=== PATIENT | female | born 1930 | race Caucasian/White ===

== ENCOUNTER 2016-12-19 14:42 | Inpatient (IN) | payer MEDICARE ==
[2016-12-19] VITALS (14 sets, daily range): BP systolic 141–179; BP diastolic 61–88
[~2016-12-19] VITALS: Ht 165.1 cm; Wt 63.5 kg
[~2016-12-19 14:42] MED LIST: ASPIRIN81 M1 PO; ATIVAN0.5 MG PO; CALCIUM 600 + V1 TAB PO; CLARITIN10 MG PO; COZAAR50 M1 PO; FOSAMAX70 M1 PO; GLIPIZIDE2.5 MG PO; HUMALOG100 U/ML SC; KEPPRA500 MG PO; LANTUS100 U/ML SC; LASIX20 MG PO; MAXIPIME2 GM IV; METFORMIN500 MG PO; METOPROLOL TART75 MG PO; METOPROLOL25 MG PO; MIRALAX POWDER17 GM PO; MULTIVITAMINS1 EAC5 PO; Micro K10 MEQ PO; NEURONTIN300 MG PO; NITRO-DUR0.4 MG/HR TD; NOVOLOG FLEX100 U/ML SC; PLAVIX75 MG PO; Synthroid,Levo50 MCG PO; VANCOCIN1000 MG/25 IV; ZOCOR40 MG PO
[2016-12-19 15:55] LABS: CKMB 4.7 ng/ml (0.5-3.6)
--- NOTE | 2016-12-19 17:55 | NUR ---
INFORMED DR CARTER THAT PTS TROPONIN WAS ELEVATED AT 0.316. NO NEW ORDERS
--- NOTE | 2016-12-19 18:05 | NUR ---
A 86, admitted to , under the services of RODOLFO Darby DO with a diagnosis of ANEMIA. Chief complaint is SHORTNESS OF BREATH. Patient arrived via bed from ER. Monitor applied. Initial assessment completed. Vital signs taken and recorded. RODOLFO DARBY DO notified of admission to the unit. Orders received. See assessment for past medical history, medications and allergies. Patient and/or family oriented to unit. [facility] visitation policy reviewed. Clothing/patient valuable form completed. ASSESSMENT COMPLETE. SKIN TEAR RIGHT ENNIS. PHOTO AND MEASUREMENTS TAKEN. WILL VERIFY HOME MEDIACTIONS. MICHELLE LYNNE
[2016-12-19] MEDS ORDERED: DONEPEZIL HCL10 MG PO (18:06)
[2016-12-19] MEDS ORDERED: DUONEB 3 MG/3 ML3 M1 INH (18:07)
[2016-12-19] MEDS ORDERED: LEXAPRO10 MG PO (18:10)
[2016-12-19] MEDS ORDERED: VITAMIN C500 M6 PO (18:23)
[2016-12-19] MEDS ORDERED: IMODIUM A-D2 M2 PO (18:25)
--- NOTE | 2016-12-19 18:29 | NUR ---
There are multiple medications in our system that are not listed on medication list provided by [facility]. I called and spoke with Emely the nurse there and she states she will refax the list.
[2016-12-19 19:35] LABS: BASO % 0.3 % (0.0-1.0); EOS # 0.2 10*3/uL (0.0-0.4); EOS % 2.8 % (1.0-4.0); HEMATOCRIT 25.8 % (37.0-47.0); HEMOGLOBIN 7.9 g/dl (12.0-16.0); LYMPH # 0.9 10*3/uL (1.3-4.4); LYMPH % 11.7 % (27.0-41.0); MEAN CELL VOLUME 100.4 fl (81.0-99.0); MEAN CORPUSCULAR HGB 30.7 pg (27.0-31.0); MEAN CORPUSCULAR HGB CONC 30.6 g/dl (33.0-37.0); MEAN PLATELET VOLUME 12.1 fl (9.6-12.3); MONO # 0.6 10*3/uL (0.1-1.0); MONO % 7.4 % (3.0-9.0); NEUT # 6.1 10*3/uL (2.3-7.9); NEUT % 77.3 % (47.0-73.0); RED BLOOD COUNT 2.57 10*6/uL (4.10-5.10); RED CELL DISTRI WIDTH 14.5 % (0-14.5); WHITE BLOOD COUNT 7.9 10*3/uL (4.8-10.8)
[2016-12-19 19:39] LABS: PLATELET COUNT AUTOMATED 197 10*3/uL (130-400)
--- NOTE | 2016-12-19 19:45 | NUR ---
SPOKE TO DR DOWLING REGARDING NEW PT CONSULT. CONTINUE TO MONITOR PT. CALL WITH ANY FURTHER ELEVATION OF CARDIAC ENZYMES. DR DOWLING WILL SEE PT TOMORROW.
--- NOTE | 2016-12-19 20:07 | NUR ---
DR. CHAMPAGNE NOTIFIED OF CRITICAL TROPONIN OF 0.309 AND TRENDING DOWNWARDS AND PT NO LONGER C/O CP. NO N.O. RCVD AT THIS TIME.
--- NOTE | 2016-12-20 00:03 | NUR ---
DR. CHAMPAGNE NOTIFIED OF CRITICAL TROPONIN OF 0.387 AND HTN. N.O. RCVD TO GIVE 50MG METOPROLOL X1 NOW. WILL SEE PT IN THE AM.
[2016-12-20 02:22] LABS: BASO % 0.3 % (0.0-1.0); EOS # 0.2 10*3/uL (0.0-0.4); EOS % 2.1 % (1.0-4.0); HEMATOCRIT 28.4 % (37.0-47.0); HEMOGLOBIN 9.3 g/dl (12.0-16.0); LYMPH # 0.7 10*3/uL (1.3-4.4); LYMPH % 9.1 % (27.0-41.0); MEAN CORPUSCULAR HGB 30.8 pg (27.0-31.0); MEAN CORPUSCULAR HGB CONC 32.7 g/dl (33.0-37.0); MEAN PLATELET VOLUME 11.6 fl (9.6-12.3); MONO # 0.6 10*3/uL (0.1-1.0); MONO % 8.8 % (3.0-9.0); NEUT # 5.7 10*3/uL (2.3-7.9); NEUT % 79.1 % (47.0-73.0); PLATELET COUNT AUTOMATED 175 10*3/uL (130-400); RED BLOOD COUNT 3.02 10*6/uL (4.10-5.10); RED CELL DISTRI WIDTH 15.1 % (0-14.5); WHITE BLOOD COUNT 7.2 10*3/uL (4.8-10.8)
[2016-12-20 02:32] LABS: ACT PARTIAL THROMBO TIME 25.6 SECONDS (20.8-31.5); INTERNATIONAL NORM RATIO 0.9 (2.0-3.5)
[2016-12-20 02:39] LABS: CREATININE 1.62 mg/dL (0.55-1.02); MAGNESIUM 2.3 mg/dL (1.5-2.1); PHOSPHOROUS 3.1 mg/dL (2.5-4.9); POTASSIUM 4.4 mmol/L (3.5-5.1); TOTAL PROTEIN 6.6 gm/dL (6.4-8.2)
--- NOTE | 2016-12-20 02:58 | NUR ---
DR. CHAMPAGNE NOTIFIED OF CRITICAL TROPONIN OF 0.474, PT ASYMPTOMATIC, ST OF 106 ON CM, BP 163/86, BUN 53, CR 1.62. NO N.O. RCVD AT THIS TIME.
--- NOTE | 2016-12-20 04:41 | NUR ---
24 HR chart check completed.
[2016-12-20 08:00] VITALS: BP 138/64
--- NOTE | 2016-12-20 08:15 | NUR ---
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 PT COMES FROM [facility].
[2016-12-20] MEDS ORDERED: ZANTAC 300300 MG PO (10:44)
--- NOTE | 2016-12-20 10:44 | NUR ---
NEW [facility] FAXED FORM [facility] AND UPDATED.
[2016-12-20 12:00] VITALS: BP 138/64
--- NOTE | 2016-12-20 12:44 | NUR ---
JORGE LUIS MITCHELL [id number] Please refer to the physician's history and physical for past medical history, comorbid conditions, and allergies. Diagnosis: ANEMIA Macho Score: 16,AT RISK WOUND DESCRIPTIONS: Location of the wound: right steele Type of wound: skin tear Thickness: Partial Size: 1.8cm x 1.4cm x 0.1cm Tunneling: none Undermining: none Sinus Tract: none Presence of Exudate: Sanguineous Amount: Light Color: Red Odor: None Periwound Skin Appearance: Normal Wound edges: approximated Pain (associated with wound): none at time of assessment How does patient state this happened? pt unable to state how this happened Surface the patient is resting on: Isoflex SKIN PREVENTION RECOMMENDATION: 1. Pressure redistribution support surface as appropriate 2. Elevate heels 3. Remove boots/TEDS every shift and reapply 4. Head of bed 30 degrees as tolerated 5. Assess nutrition and hydration 6. Manage moisture 7. Avoid the use of containment devices while in bed 8. Use absorptive products on surfaces limit layers of linens on bed 9. Turn and reposition every 1-2 hours in bed and every 1 hour in chair as tolerated 10. Weight shifts every 15 minutes while up in chair 11. Offloading with pillows or device to keep heels elevated off bed 12. Monitor skin at least every shift 13. Inspect under medical devices twice a day WOUND TREATMENT RECOMMENDATIONS: Skin tear guidelines NSS, sureprep, versatel, hydrogel and optifoam gentle.
--- NOTE | 2016-12-20 12:45 | NUR ---
Spoke with Dr. Barnes regarding wound care recommendations.
[2016-12-20 16:00] VITALS: BP 159/82
[2016-12-20 20:00] VITALS: BP 168/80
--- NOTE | 2016-12-20 20:00 | NUR ---
ASSISTED PT TO BR W/2WW. PT BECAME VERY SOB W/AMBULATION. SAT 84% RA. SAT INCREASED TO 94% ONCE SHE SAT ON BED. O2 2LNC SET UP AND PT ENCOURAGED TO USE W/AMBULATION. PT AGREED.
[2016-12-21] VITALS: BP 150/49
[2016-12-21 05:55] LABS: BASO % 0.5 % (0.0-1.0); EOS # 0.2 10*3/uL (0.0-0.4); EOS % 3.1 % (1.0-4.0); HEMATOCRIT 29.2 % (37.0-47.0); HEMOGLOBIN 9.4 g/dl (12.0-16.0); LYMPH # 0.7 10*3/uL (1.3-4.4); LYMPH % 12.2 % (27.0-41.0); MEAN CELL VOLUME 94.8 fl (81.0-99.0); MEAN CORPUSCULAR HGB 30.5 pg (27.0-31.0); MEAN CORPUSCULAR HGB CONC 32.2 g/dl (33.0-37.0); MEAN PLATELET VOLUME 11.9 fl (9.6-12.3); MONO # 0.6 10*3/uL (0.1-1.0); MONO % 10.8 % (3.0-9.0); NEUT # 4.3 10*3/uL (2.3-7.9); NEUT % 73.1 % (47.0-73.0); PLATELET COUNT AUTOMATED 188 10*3/uL (130-400); RED BLOOD COUNT 3.08 10*6/uL (4.10-5.10); RED CELL DISTRI WIDTH 15.3 % (0-14.5); WHITE BLOOD COUNT 5.8 10*3/uL (4.8-10.8)
[2016-12-21 05:59] LABS: CREATININE 1.33 mg/dL (0.55-1.02); MAGNESIUM 2.5 mg/dL (1.5-2.1); POTASSIUM 4.3 mmol/L (3.5-5.1)
[2016-12-21 08:00] VITALS: BP 140/60
[2016-12-21 12:00] VITALS: BP 152/88
--- NOTE | 2016-12-21 13:01 | NUR ---
24 HR chart check completed. Patient resting quietly with no c/o discomfort. Respirations easy and regular. Vital signs stable. No overt distress. ZAID KOROMA
[2016-12-21 16:00] VITALS: BP 148/50
[2016-12-21] MEDS ORDERED: METOPROLOL TAR100 M1 PO (16:03)
--- NOTE | 2016-12-21 17:15 | NUR ---
PT DC BACK TO [facility] VIA DAUGHTER IN [employer] CAR. REPORT CALLED TO [facility]FA[facility].
== END 2016-12-21 17:15 | disposition home or self-care (01) | DRG 280 ==
LOC: ED 14:42 → 4E 17:59
PROVIDERS: Internal Medicine Nephrology; Nurse Practitioner Family; ADMIT Internal Medicine
PROC: 30233N1 Transfusion of Nonautologous Red Blood Cells into Peripheral Vein, Percutaneous Approach (ICD-10-PCS; principal; 2016-12-19)
DX: I21.A1 Myocardial infarction type 2 (principal); E43 Unspecified severe protein-calorie malnutrition; E11.40 Type 2 diabetes mellitus with diabetic neuropathy, unspecified; R65.10 Systemic inflammatory response syndrome (SIRS) of non-infectious origin without acute organ dysfunction; E11.22 Type 2 diabetes mellitus with diabetic chronic kidney disease; E11.51 Type 2 diabetes mellitus with diabetic peripheral angiopathy without gangrene; E83.41 Hypermagnesemia; I13.0 Hypertensive heart and chronic kidney disease with heart failure and stage 1 through stage 4 chronic kidney disease, or unspecified chronic kidney disease; E11.65 Type 2 diabetes mellitus with hyperglycemia; D64.9 Anemia, unspecified; K21.9 Gastro-esophageal reflux disease without esophagitis; E87.8 Other disorders of electrolyte and fluid balance, not elsewhere classified; D72.810 Lymphocytopenia; E78.5 Hyperlipidemia, unspecified; E03.9 Hypothyroidism, unspecified; F41.9 Anxiety disorder, unspecified; F32.9 Major depressive disorder, single episode, unspecified; N18.3 Chronic kidney disease, stage 3 (moderate); M81.0 Age-related osteoporosis without current pathological fracture; R00.0 Tachycardia, unspecified; G40.909 Epilepsy, unspecified, not intractable, without status epilepticus; F17.210 Nicotine dependence, cigarettes, uncomplicated; I25.10 Atherosclerotic heart disease of native coronary artery without angina pectoris; I50.9 Heart failure, unspecified; Z86.73 Personal history of transient ischemic attack (TIA), and cerebral infarction without residual deficits; Z88.0 Allergy status to penicillin; Z88.2 Allergy status to sulfonamides; Z79.84 Long term (current) use of oral hypoglycemic drugs; Z79.82 Long term (current) use of aspirin; Z79.4 Long term (current) use of insulin; Z95.5 Presence of coronary angioplasty implant and graft; Z80.1 Family history of malignant neoplasm of trachea, bronchus and lung; Z79.899 Other long term (current) drug therapy; Z82.49 Family history of ischemic heart disease and other diseases of the circulatory system; Z68.23 Body mass index [BMI] 23.0-23.9, adult

== ENCOUNTER → 2017-01-10 | Outpatient (CLI) | payer MEDICARE ==
[~2017-01-10] MED LIST changes: +DONEPEZIL HCL10 MG PO; +DUONEB 3 MG/3 ML3 M1 INH; +IMODIUM A-D2 M2 PO; +LEXAPRO10 MG PO; +METOPROLOL TAR100 M1 PO; +VITAMIN C500 M6 PO; +ZANTAC 300300 MG PO
[2017-01-10 16:38] LABS: BASO % 0.5 % (0.0-1.0); EOS # 0.2 10*3/uL (0.0-0.4); EOS % 2.5 % (1.0-4.0); HEMATOCRIT 30.7 % (37.0-47.0); HEMOGLOBIN 9.8 g/dl (12.0-16.0); LYMPH # 0.9 10*3/uL (1.3-4.4); LYMPH % 11.1 % (27.0-41.0); MEAN CELL VOLUME 94.2 fl (81.0-99.0); MEAN CORPUSCULAR HGB 30.1 pg (27.0-31.0); MEAN CORPUSCULAR HGB CONC 31.9 g/dl (33.0-37.0); MEAN PLATELET VOLUME 10.7 fl (9.6-12.3); MONO # 0.7 10*3/uL (0.1-1.0); NEUT # 6.3 10*3/uL (2.3-7.9); NEUT % 76.4 % (47.0-73.0); PLATELET COUNT AUTOMATED 277 10*3/uL (130-400); RED BLOOD COUNT 3.26 10*6/uL (4.10-5.10); RED CELL DISTRI WIDTH 13.9 % (0-14.5); WHITE BLOOD COUNT 8.3 10*3/uL (4.8-10.8)
[2017-01-10 17:08] LABS: ALBUMIN 3.6 gm/dl (3.1-4.5); CREATININE 1.54 mg/dL (0.55-1.02); POTASSIUM 3.8 mmol/L (3.5-5.1); TOTAL PROTEIN 6.8 gm/dL (6.4-8.2)
== END | disposition home or self-care (01) ==
LOC: LAB 16:08
PROVIDERS: Internal Medicine Cardiovascular Disease
DX: I25.10 Atherosclerotic heart disease of native coronary artery without angina pectoris (principal); D64.9 Anemia, unspecified; R06.9 Unspecified abnormalities of breathing